=== PATIENT | female | born 1970 | race Caucasian/White ===

== ENCOUNTER 2018-09-02 21:38 | Emergency (ER) | payer BC ==
[~2018-09-02] VITALS: Ht 162.6 cm; Wt 81.7 kg
[~2018-09-02 21:38] MED LIST: IBUPROFEN 600600 M1 PO; NOHOMEMEDICATIONS; NORCO 5-325 TA1 EACH PO; VALIUM2 MG PO
[2018-09-02] MEDS ORDERED: PHENTERMINE PO (21:44)
[2018-09-02] MEDS ORDERED: LISINOPRIL10 MG PO (21:45)
[2018-09-02] MEDS ORDERED: LIPITOR10 MG PO (21:45)
[2018-09-02] MEDS ORDERED: WELLBUTRIN SR150 MG PO (21:46)
[2018-09-02] MEDS ORDERED: SYNTHROID75 MCG PO (21:46)
[2018-09-02 22:16] LABS: ABSOLUTE NEUTROPHILS 13.9 thou/uL (1.4-8.2); BASOPHILS 0.6 % (0.0-2.0); HEMATOCRIT 43.3 % (37.0-47.0); HEMOGLOBIN 14.5 gm/dL (12.0-15.0); LYMPHOCYTES 9.3 % (24.0-44.0); MCH 29.1 pg (26.0-34.0); MCHC 33.4 g/dL (28.0-37.0); MONOCYTES 3.9 % (1.0-8.0); PLATELET COUNT 336 thou/uL (150-400); POLYS 85.2 % (36.0-66.0); RBC 4.97 mil/uL (4.20-5.00); RDW 13.8 % (10.5-14.5); WBC 16.3 thou/uL (4.0-11.0)
[2018-09-02 22:27] LABS: CALCIUM 9.2 mg/dL (8.5-10.1); CREATININE 2.1 mg/dL (0.6-1.0); POTASSIUM 4.2 mmol/L (3.5-5.1)
[2018-09-02 23:24] VITALS: BP 118/89
--- NOTE | 2018-09-04 18:18 | EKG ---
[address] [address] ELECTROCARDIOGRAM REPORT Name: SUNITHA FARMER Room #: [facility]P [facility] [id number] ������������������ Admission: 09/02/18 ������������������ Attend Phys: Discharge: 09/02/18 ������������������ Date of : 70 Report #: [id number] ����������������������������������������������������������������� [id number] THIS REPORT FOR: //name// [facility] ED Test Date: 2018-09-02 Test Time: 21:46:54 Pat Name: SUNITHA FARMER Department: Room: Gender: F [employer]: MILO : 1970 Requested By: Jerri Dean Order Number: [id number] MD: Thee Lew Measurements Intervals [place] Rate: 70 P: 4 WI: 155 QRS: 64 QRSD: 85 T: 27 QT: 443 QTc: 479 Interpretive Statements Sinus rhythm Normal tracing No previous ECG available for comparison Electronically Signed On 09-04-2018 18:18:32 CDT by Thee Lew [email or web address] ��������������������������������������������� <ELECTRONICALLY SIGNED> ���������������������������������������� By: Thee Lew MD, [facility] ��������������������������������������������� 09/04/18 1818 2146 2146 Thee Lew MD, FACC /EPI
== END 2018-09-02 23:24 | disposition home or self-care (01) ==
LOC: ER 21:38
PROVIDERS: Emergency Medicine
DX: T67.5XXA Heat exhaustion, unspecified, initial encounter (principal); R11.2 Nausea with vomiting, unspecified; F17.200 Nicotine dependence, unspecified, uncomplicated; K21.9 Gastro-esophageal reflux disease without esophagitis; Z90.49 Acquired absence of other specified parts of digestive tract